=== PATIENT | male | born 1940 | race Caucasian/White ===

== ENCOUNTER 2021-04-02 09:10 | Outpatient (CLI) | payer SELFPAY | END 2021-04-02 23:59 | disposition home or self-care (01) | LOC: WOU 09:10 | PROVIDERS: ATTEND Specialist | DX: Z01.818 Encounter for other preprocedural examination (principal); M86.68 Other chronic osteomyelitis, other site; B38.1 Chronic pulmonary coccidioidomycosis; H90.3 Sensorineural hearing loss, bilateral | CPT/HCPCS: 71045-TC; G0463 ==